=== PATIENT | female | born 1975 | race Caucasian/White ===

== ENCOUNTER 2017-06-08 17:07 | Emergency (ER) | payer BC ==
[2017-06-08 17:11] VITALS: BP 105/64; PULSE 87; TEMP 98.8; BMI 22.1
[2017-06-08] MEDS ORDERED: KETOROLAC TROMETHAMINE 30 MG/1 ML VIAL IM ONE (17:59)
--- NOTE | 2017-06-08 18:02 | PDOC ---
History of Present Illness - General History Source: Patient Exam Limitations: No Limitations <Rach Laura - Last Filed: 06/08/17 18:30> - History of Present Illness Initial Comments: 06/08/17 18:40 The patient is a 42 year old female with no significant past medical history, who presents to the Emergency Department with diffuse back spasms for 2 weeks. Patient stated that she threw out her back upon sudden movement around two weeks ago and is unable to recall any injury or trauma that she believes directly caused her back pain. She is contorted and is unable to straighten her back. She says that it is hard for her to get out of bed. She denies chest pain, shortness of breath, headache and dizziness. She denies fever, chills, nausea, vomiting, diarrhea, and constipation. She denies dysuria , frequency, urgency, and hematuria. <Fide Menon - Last Filed: 06/08/17 18:41> - General Chief Complaint: Pain, Acute Stated Complaint: LOW BACK PAIN Time Seen by Provider: 06/08/17 17:13 Past History - Past Medical History Asthma: No Cancer: No Cardiac Disorders: No Diabetes: No HTN: No Seizures: No Thyroid Disease: No - Suicide/Smoking/Psychosocial Hx Smoking History: Current every day smoker Have you smoked in the past 12 months: No Number of Cigarettes Smoked Daily: 10 If you are a former smoker, when did you quit?: 10/2014 Information on smoking cessation initiated: Yes 'Breaking Loose' booklet given: 06/08/17 Hx Alcohol Use: Yes Drug/Substance Use Hx: No Substance Use Type: Alcohol Hx Substance Use Treatment: No <Rach Laura - Last Filed: 06/08/17 18:30> <Fide Menon - Last Filed: 06/08/17 18:41> - Past Medical History Allergies/Adverse Reactions: Allergies Allergy/AdvReac Type Severity Reaction Status Date / Time No Known Allergies Allergy Verified 06/08/17 17:08 Home Medications: Ambulatory Orders Lidocaine 5% Patch [Lidoderm Patch -] 1 patch TP DAILY PRN #30 patch 06/08/17 Methocarbamol [Robaxin -] 500 mg PO TID PRN #30 tablet 06/08/17 Naproxen [Naprosyn -] 500 mg PO BID PRN #14 tablet 06/08/17 Review of Systems - Review of Systems Able to Perform ROS?: Yes Comments:: 06/08/17 18:40 GENERAL/CONSTITUTIONAL: No: fever, chills, weakness, loss of appetite. HEAD, EYES, EARS, NOSE AND THROAT: No: change in vision, ear pain, discharge, sore throat, throat swelling. CARDIOVASCULAR: No: chest pain, lightheadedness, palpitations, syncope RESPIRATORY: No: cough, shortness of breath, wheezing, hemoptysis, stridor. GASTROINTESTINAL: No: nausea, vomiting, abdominal cramping, diarrhea, rectal bleeding, constipation. GENITOURINARY: No: dysuria, hematuria, frequency, urgency, flank pain. MUSCULOSKELETAL: + back pain No: neck pain, joint pain. SKIN AND BREASTS: No: lesions, pallor, rash or easy bruising. NEUROLOGIC: No: headache, vertigo, paresthesias, weakness ENDOCRINE: No: unexplained weight gain or loss HEMATOLOGIC/LYMPHATIC: No: anemia, easy bleeding, swelling nodes <Fide Menon - Last Filed: 06/08/17 18:41> *Physical Exam - Vital Signs Last Vital Signs Temp Pulse Resp BP Pulse Ox 98.8 F 87 17 105/64 100 06/08/17 17:08 06/08/17 17:08 06/08/17 17:08 06/08/17 17:08 06/08/17 17:08 <Rach Laura - Last Filed: 06/08/17 18:30> - Vital Signs Last Vital Signs Temp Pulse Resp BP Pulse Ox 98.8 F 87 17 105/64 100 06/08/17 17:08 06/08/17 17:08 06/08/17 17:08 06/08/17 17:08 06/08/17 17:08 - Physical Exam Comments: 06/08/17 18:41 GENERAL: The patient is in no acute distress. HEAD: Normal with no signs of trauma. EYES: PERRLA, EOMI, sclera anicteric, conjunctiva clear. ENT: Ears normal, nares patent, oropharynx clear without exudates. Moist mucous membranes. NECK: Normal range of motion, supple without lymphadenopathy, JVD, or masses. LUNGS: Breath sounds equal, clear to auscultation bilaterally. No wheezes, and no crackles. HEART:Regular rate and rhythm, normal S1 and S2 without murmur, rub or gallop. ABDOMEN: Soft, nontender, normoactive bowel sounds. No guarding, no rebound. EXTREMITIES: Normal range of motion, no edema. No clubbing or cyanosis. No erythema, or tenderness. NEUROLOGICAL: Normal neuro exam. Cranial nerves II through XII grossly intact. Normal speech. No focal neurological deficits. MUSCULOSKELETAL: +Left cervical tenderness. No midline cervical spine tenderness , no bruising, abrasions, lacerations, or other deformities. SKIN: Warm, Dry, normal turgor, no rashes or lesions noted. <Fide Menon - Last Filed: 06/08/17 18:41> ED Treatment Course - ADDITIONAL ORDERS Additional order review: Laboratory Results 06/08/17 18:11 Urine HCG, Qual Negative - Medications Given in the ED: ED Medications Discontinued Medications Generic Name Dose Route Start Last Admin Trade Name Freq PRN Reason Stop Dose Admin Ketorolac Tromethamine 30 mg 06/08/17 17:59 06/08/17 18:33 Toradol Injection - IM 06/08/17 18:00 30 mg ONCE ONE Administration <Fide Menon - Last Filed: 06/08/17 18:41> Medical Decision Making - Medical Decision Making 06/08/17 17:59 I, Dr. Rach Laura, attest that this document has been prepared under my direction and personally reviewed by me in its entirety. I further attest, that it accurately reflects all work, treatment, procedures and medical decision -making performed by me. 06/08/17 18:30 This is a 42 yo F with no significant past medical history She presents to the ER with a complaint of back pain Present for the past 2 weeks She now remembers making a sudden twisting motion and causing upper back pain pain Since then, she has noted lower back pain which has been constant and is progressively worsening No direct trauma to the back No fevers or chills No history of cancer No history of IVDU Pain improved to 5/10 with Motrin On examination Limited range of motion of the back No midline tenderness to palpation No bruising No deformities Pt ambulatory with no difficulty motor in lower extremities 5/5 Sensation in lower extremities intact Will discharge to home Will give muscle relaxant, continue anti inflammatories and add lidoderm patch Pt to follow up with PMD within 1 week <Rach Laura - Last Filed: 06/08/17 18:30> *DC/Admit/Observation/Transfer - Discharge Dispostion Admit: No <Rach Laura - Last Filed: 06/08/17 18:30> - Attestations Scribe Attestion: 06/08/17 18:41 Documentation prepared by Fide Menon, acting as medical transcription supervisor for Rach Laura MD. <Fide Menon - Last Filed: 06/08/17 18:41> Diagnosis at time of Disposition: Back spasm - Discharge Dispostion Disposition: HOME Condition at time of disposition: Stable - Prescriptions Prescriptions: Lidocaine 5% Patch [Lidoderm Patch -] 1 patch TP DAILY PRN #30 patch PRN Reason: Pain Naproxen [Naprosyn -] 500 mg PO BID PRN #14 tablet PRN Reason: Pain Methocarbamol [Robaxin -] 500 mg PO TID PRN #30 tablet PRN Reason: Lower Back Pain - Referrals Referrals: Chay Hatch MD [Staff Physician] - - Patient Instructions Printed Discharge Instructions: DI for Back Spasm Additional Instructions: Thank you for coming to the ER today I am sorry about your back pain Take the muscle relaxer Robaxin as prescribed for pain. You may take Naproxen or Aleeve as needed for pain. Apply ice and rest the back as needed. Avoid heavy lifting for the next 1-2 weeks. Follow up with your primary care provider within 24 to 48 hours. Please go to the emergency room if any new or worsening symptoms develop. - Post Discharge Activity Forms/Work/School Notes: Back to Work
[2017-06-08] MEDS ORDERED: KETOROLAC TROMETHAMINE 30 MG/1 ML VIAL ONE (18:24)
== END 2017-06-08 18:34 | disposition home or self-care (01) ==
LOC: FER 17:07
PROC: 3E0233Z Introduction of Anti-inflammatory into Muscle, Percutaneous Approach (ICD-10-PCS; principal; 2017-06-08)
DX: M62.830 Muscle spasm of back (principal)
CPT/HCPCS: 84703; 99282-25

== ENCOUNTER 2017-12-21 10:18 | Emergency (ER) | payer BC ==
[2017-12-21 10:34] VITALS: TEMP 98.3; BMI 22.1
--- NOTE | 2017-12-21 10:41 | PDOC ---
History of Present Illness - General Chief Complaint: Palpitations Stated Complaint: PALPITATIONS Time Seen by Provider: 12/21/17 10:20 History Source: Patient Exam Limitations: No Limitations - History of Present Illness Initial Comments: 42 yo F history mitral valve prolapse presents with palpitations. She states that she has history of skipped beats with the mitral valve prolapse, but for the past few days, they have been feeling more intense, at times making her feel winded. Denies syncope, near syncope, cp, SOB, leg swelling, OCP use, nutritional supplements. No recent exercise regimen. No recent weight changes, hot flashes, cold intolerance. She states she has decreased her caffeine use from baseline since this has been happening. She states her last echo was about 20 years ago when she was diagnosed with the PVCs. She went to an urgent care a few days ago, they recommended that she present to ED for evaluation. Past History - Past Medical History Allergies/Adverse Reactions: Allergies Allergy/AdvReac Type Severity Reaction Status Date / Time No Known Allergies Allergy Verified 06/08/17 17:08 Home Medications: Ambulatory Orders Lidocaine 5% Patch [Lidoderm Patch -] 1 patch TP DAILY PRN #30 patch 06/08/17 Methocarbamol [Robaxin -] 500 mg PO TID PRN #30 tablet 06/08/17 Naproxen [Naprosyn -] 500 mg PO BID PRN #14 tablet 06/08/17 Asthma: No Cancer: No Cardiac Disorders: No COPD: No Diabetes: No HTN: No Seizures: No Thyroid Disease: No - Suicide/Smoking/Psychosocial Hx Smoking History: Current some day smoker Have you smoked in the past 12 months: No Number of Cigarettes Smoked Daily: 1 If you are a former smoker, when did you quit?: 10/2014 Information on smoking cessation initiated: No 'Breaking Loose' booklet given: 06/08/17 Hx Alcohol Use: Yes (occasional) Drug/Substance Use Hx: No Substance Use Type: Alcohol Hx Substance Use Treatment: No Review of Systems - Review of Systems Able to Perform ROS?: Yes Comments:: GENERAL/CONSTITUTIONAL: No fever or chills. No weakness. HEAD, EYES, EARS, NOSE AND THROAT: No change in vision. No ear pain or discharge. No sore throat. CARDIOVASCULAR: No chest pain or shortness of breath. +Palpitations. RESPIRATORY: No cough, wheezing, or hemoptysis. GASTROINTESTINAL: No nausea, vomiting, diarrhea or constipation. GENITOURINARY: No dysuria, frequency, or change in urination. MUSCULOSKELETAL: No joint or muscle swelling or pain. No neck or back pain. SKIN: No rash NEUROLOGIC: No headache, vertigo, loss of consciousness, or change in strength/ sensation. ENDOCRINE: No increased thirst. No abnormal weight change. HEMATOLOGIC/LYMPHATIC: No anemia, easy bleeding, or history of blood clots. ALLERGIC/IMMUNOLOGIC: No hives or skin allergy. *Physical Exam - Vital Signs Last Vital Signs Temp Pulse Resp BP Pulse Ox 98.3 F 62 18 113/75 100 12/21/17 10:19 12/21/17 10:19 12/21/17 10:19 12/21/17 10:12/21/17 10:19 - Physical Exam Comments: GENERAL: Awake, alert, and fully oriented, in no acute distress HEAD: No signs of trauma EYES: PERRLA, EOMI, sclera anicteric, conjunctiva clear ENT: Auricles normal inspection, hearing grossly normal, nares patent, oropharynx clear without exudates. Moist mucosa NECK: Normal ROM, supple, no lymphadenopathy, JVD, or masses LUNGS: Breath sounds equal, clear to auscultation bilaterally. No wheezes, and no crackles HEART: Regular rate and rhythm, normal S1 and S2. Occasional extrasystole. ABDOMEN: Soft, nontender, normoactive bowel sounds. No guarding, no rebound. No masses EXTREMITIES: Normal range of motion, no edema. No clubbing or cyanosis. No cords, erythema, or tenderness NEUROLOGICAL: Cranial nerves II through XII grossly intact. Normal speech, normal gait SKIN: Warm, Dry, normal turgor, no rashes or lesions noted. Heart Score/ECG Review - ECG Impressions Comment:: EKG read 10:53- NSR 66 bpm, no acute ST/T changes Compared to rhythm strip and EKG from urgent care on 12/19, which showed intermittent PVCs. ED Treatment Course - LABORATORY CBC & Chemistry Diagram: 12/21/17 11:11 12/21/17 11:10 Medical Decision Making - Medical Decision Making Rhythm strip from urgent care and ED cardiac monitoring both show intermittent single PVCs. Patient has had them in the past, but describes them as more intense in the past few days. TSH, cardiac enzymes, CMP all wnl. Counseled to f/ u as outpatient with PMD, return to ED if cp, SOB, lightheadedness, near syncope. *DC/Admit/Observation/Transfer Diagnosis at time of Disposition: PVCs (premature ventricular contractions) - Discharge Dispostion Disposition: HOME Condition at time of disposition: Stable Admit: No - Referrals - Patient Instructions Printed Discharge Instructions: Premature Ventricular Beats, DI for Palpitations - Post Discharge Activity
[2017-12-21 11:28] LABS: HEMOGLOBIN 14.6 GM/dl (10.7-15.3)
[2017-12-21 11:49] LABS: ALBUMIN 4.3 g/dl (3.5-5.0); ALK PHOS 62 U/L (32-92); ANION GAP 4 (8-16); BILIRUBIN,TOTAL 1.3 mg/dl (0.2-1.0); BLOOD UREA NITROGEN 19 mg/dl (7-18); CHLORIDE 108 mmol/L (98-107); CO2 23 mmol/L (22-28); GLUCOSE,RANDOM 89 mg/dl (74-106); SGOT/AST 23 U/L (10-42); SGPT/ALT 40 U/L (10-40); SODIUM 135 mmol/L (136-145); TOT PROT 7.1 g/dl (6.4-8.3)
[2017-12-21 11:52] LABS: BASO % 0.9 % (0-2.0); EOS % 3.9 % (0-4.5); HEMATOCRIT 42.8 % (32.4-45.2); LYMPH % 33.2 % (8-40); MCH 29.8 pg (25.7-33.7); MCHC 34.1 g/dl (32.0-36.0); MEAN CELL VOLUME 87.2 fl (80-96); MEAN PLT VOLUME 8.9 fl (7.5-11.1); MONO % 6.7 % (3.8-10.2); NEUT % 55.3 % (42.8-82.8); PLATELET COUNT 227 K/MM3 (134-434); RDW 12.8 % (11.6-15.6); WHITE BLOOD COUNT 6.2 K/mm3 (4.0-10.8)
[2017-12-21 12:10] LABS: CREATININE < 0.8 mg/dl (0.6-1.3)
[2017-12-21 13:57] VITALS: BP 110/70; PULSE 68
--- NOTE | 2017-12-21 14:38 | EKG ---
Test Reason : Blood Pressure : / mmHG Vent. Rate : 066 BPM Atrial Rate : 066 BPM P-R Int : 164 ms QRS Dur : 088 ms QT Int : 436 ms P-R-T Axes : 060 033 044 degrees QTc Int : 457 ms NORMAL SINUS RHYTHM POSSIBLE LEFT ATRIAL ENLARGEMENT BORDERLINE ECG NO PREVIOUS ECGS AVAILABLE Confirmed by ASA LANDAVERDE, GRECIA ([id number]) on 12/21/2017 2:38:20 PM Referred By: DR FRAIRE Confirmed By:GRECIA BRAY MD
== END 2017-12-21 13:57 | disposition home or self-care (01) ==
LOC: FER 10:18
DX: I49.3 Ventricular premature depolarization (principal); F17.210 Nicotine dependence, cigarettes, uncomplicated
CPT/HCPCS: 36415; 80053; 82550; 84443; 84484; 84703; 85025; 93005; 99283-25

== ENCOUNTER 2020-12-08 05:38 | Day surgery (SDC) | payer BC ==
[2020-12-04 17:28] VITALS: BMI 22.1
[2020-12-08] MEDS ORDERED: LIDOCAINE HCL/PF 2% SDV 5ML VIAL ONE (12:25)
[2020-12-08] MEDS ORDERED: MIDAZOLAM HCL 2 MG/2 ML SINGLE DOSE VIAL ONE (12:26)
[2020-12-08] MEDS ORDERED: PROPOFOL 20 ML ONE (12:26)
[2020-12-08] MEDS ORDERED: ceFAZolin SODIUM 1 GM VIAL ONE (12:45)
[2020-12-08] MEDS ORDERED: ceFAZolin SODIUM 1 GM VIAL IVPB ONE (12:46)
[2020-12-08] MEDS ORDERED: DEXAMETHASONE SOD PHOSPHATE 4 MG/1 ML VIAL ONE (12:51)
[2020-12-08] MEDS ORDERED: KETOROLAC TROMETHAMINE 30 MG/1 ML VIAL ONE (13:01)
[2020-12-08] MEDS ORDERED: oxyCODONE HCL 5 MG TABLET PO PRN (13:18)
[2020-12-08] MEDS ORDERED: ONDANSETRON 4 MG/2 ML VIAL IVPUSH PRN (13:18)
[2020-12-08] MEDS ORDERED: ACETAMINOPHEN 1000 MG/100 ML VIAL (NON FORMULARY) IVPB PRN (13:18)
[2020-12-08] MEDS ORDERED: LACTATED RINGERS SOLUTION 1,000 ML IV SCH (13:30)
[2020-12-08] MEDS ORDERED: ACETAMINOPHEN INJECTION 100 ML IVPB ONE (13:32)
[2020-12-08] MEDS ORDERED: ACETAMINOPHEN 1000 MG/100 ML VIAL (NON FORMULARY) IVPB ONE (13:35)
[2020-12-08 15:01] VITALS: TEMP 98.2
[2020-12-08 15:46] VITALS: BP 120/80; PULSE 63
== END 2020-12-08 16:04 | disposition home or self-care (01) ==
LOC: JASU-SURG 05:38
PROVIDERS: ATTEND Obstetrics & Gynecology
PROC: 0UJD8ZZ Inspection of Uterus and Cervix, Via Natural or Artificial Opening Endoscopic (ICD-10-PCS; 2020-12-08)
PROC: 0UB97ZX Excision of Uterus, Via Natural or Artificial Opening, Diagnostic (ICD-10-PCS; principal; 2020-12-08 12:00)
PROC: 0UDB7ZX Extraction of Endometrium, Via Natural or Artificial Opening, Diagnostic (ICD-10-PCS; 2020-12-08 12:00)
DX: N95.0 Postmenopausal bleeding (principal); N84.0 Polyp of corpus uteri
CPT/HCPCS: 81025; 88305-TC; 94760; J0131